=== PATIENT | female | born 2000 | race Caucasian/White ===

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

== ENCOUNTER 2023-04-20 22:43 | Emergency (ER) | payer OTHER ==
[2023-04-20 22:47] VITALS: BMI 28.5
[2023-04-20 23:35] LABS: HCG,QUALITATIVE URINE Positive
[2023-04-20 23:36] LABS: URINE APPEARANCE CLEAR; URINE BILIRUBIN NEGATIVE (NEGATIVE); URINE COLOR YELLOW; URINE GLUCOSE (UA) NEGATIVE (NEGATIVE); URINE KETONE NEGATIVE (NEGATIVE); URINE LEUK ESTERASE NEGATIVE (NEGATIVE); URINE NITRITE NEGATIVE (NEGATIVE); URINE PROTEIN NEGATIVE (NEGATIVE)
[2023-04-20] MEDS ORDERED: ACETAMINOPHEN 1000 MG/100 ML BAG IVPB ONE (23:43)
[2023-04-21] MEDS ORDERED: ACETAMINOPHEN INJECTION 100 ML IVPB ONE (00:18)
[2023-04-21 00:50] LABS: BASO % 0.2 % (0-2.0); EOS % 2.5 % (0-4.5); HEMATOCRIT 37.6 % (32.4-45.2); HEMOGLOBIN 12.5 GM/dL (10.7-15.3); LYMPH % 36.3 % (8-40); MCH 28.1 pg (25.7-33.7); MCHC 33.1 g/dl (32.0-36.0); MEAN CELL VOLUME 84.9 fl (80-96); MEAN PLT VOLUME 8.4 fl (7.5-11.1); MONO % 8.2 % (3.8-10.2); NEUT % 52.8 % (42.8-82.8); PLATELET COUNT 253 10^3/uL (134-434); RBC 4.43 M/mm3 (3.60-5.2); RDW 15.6 % (11.6-15.6); WHITE BLOOD COUNT 7.7 K/mm3 (4.0-10.0)
[2023-04-21 00:58] LABS: INR 1.17 (0.83-1.09); PROTHROMBIN TIME (PATIENT) 13.6 SEC (9.7-13.0)
[2023-04-21 01:01] LABS: ACTIVATED PTT 32.2 SECONDS (25.2-36.5)
[2023-04-21 01:14] LABS: POTASSIUM 3.4 mmol/L (3.5-5.1)
[2023-04-21 01:16] LABS: CALCIUM 8.8 mg/dL (8.5-10.1)
[2023-04-21 01:17] LABS: ALBUMIN 4.1 g/dl (3.4-5.0)
[2023-04-21 01:20] LABS: CREATININE 0.5 mg/dL (0.55-1.3)
[2023-04-21 01:22] LABS: BILIRUBIN,TOTAL 0.3 mg/dL (0.2-1); TOT PROT 7.2 g/dl (6.4-8.2)
[2023-04-21] MEDS ORDERED: POTASSIUM CHLORIDE ORAL LIQUID 20 MEQ/15 ML PO ONE (01:26)
[2023-04-21 01:34] VITALS: BP 106/64; PULSE 61; RESP 18; TEMP 98.1
[2023-04-21] MEDS ORDERED: POTASSIUM CHLORIDE ORAL LIQUID 20 MEQ/15 ML ONE (01:56)
== END 2023-04-21 02:22 | disposition home or self-care (01) ==
LOC: JER 22:43
PROC: 3E033NZ Introduction of Analgesics, Hypnotics, Sedatives into Peripheral Vein, Percutaneous Approach (ICD-10-PCS; principal; 2023-04-20)
DX: O26.891 Other specified pregnancy related conditions, first trimester (principal); R10.30 Lower abdominal pain, unspecified; R35.0 Frequency of micturition; N64.4 Mastodynia; O21.9 Vomiting of pregnancy, unspecified; Z3A.01 Less than 8 weeks gestation of pregnancy
CPT/HCPCS: 36415; 76817-TC; 80053; 81003; 84702; 84703; 85025; 85610; 85730; 86850; 86900; 86901; 87086; 87110; 87491; 87591; 87661; 99284-25

== ENCOUNTER 2023-04-22 20:15 | Emergency (ER) | payer OTHER ==
[2023-04-22 20:20] VITALS: BP 106/60; PULSE 64; RESP 16; TEMP 98.5; BMI 28.3
== END 2023-04-23 00:21 | disposition home or self-care (01) ==
LOC: JER 20:15
DX: Z32.01 Encounter for pregnancy test, result positive (principal); Z3A.01 Less than 8 weeks gestation of pregnancy
CPT/HCPCS: 36415; 76817-TC; 84702; 99284-25

== ENCOUNTER 2023-05-11 23:05 | Emergency (ER) | payer OTHER ==
[2023-05-11 23:16] VITALS: BP 108/64; PULSE 66; RESP 18; TEMP 98.4; BMI 28.3
[2023-05-12 01:21] LABS: HCG,QUALITATIVE URINE Positive
[2023-05-12 01:26] LABS: EPI CELLS 19 /uL (0-25.1); HYALINE CASTS 1 /uL (0-3.1); PH,URINE 6.5 (5.0-8.0); URINE APPEARANCE CLEAR; URINE BACTERIA 212 /uL (0-1359); URINE BILIRUBIN NEGATIVE (NEGATIVE); URINE COLOR YELLOW; URINE GLUCOSE (UA) NEGATIVE (NEGATIVE); URINE KETONE NEGATIVE (NEGATIVE); URINE LEUK ESTERASE NEGATIVE (NEGATIVE); URINE NITRITE NEGATIVE (NEGATIVE); URINE PROTEIN NEGATIVE (NEGATIVE); URINE RBC 4 /uL (0-23.9); URINE WBC 7 /uL (0-25.8)
[2023-05-12 01:59] LABS: BASO % 0.4 % (0-2.0); EOS % 2.1 % (0-4.5); HEMATOCRIT 37.8 % (32.4-45.2); HEMOGLOBIN 12.1 GM/dL (10.7-15.3); LYMPH % 32.2 % (8-40); MCHC 32.1 g/dl (32.0-36.0); MEAN CELL VOLUME 87.4 fl (80-96); MEAN PLT VOLUME 8.7 fl (7.5-11.1); MONO % 6.6 % (3.8-10.2); NEUT % 58.7 % (42.8-82.8); PLATELET COUNT 289 10^3/uL (134-434); RBC 4.32 M/mm3 (3.60-5.2); RDW 15.9 % (11.6-15.6); WHITE BLOOD COUNT 10.1 K/mm3 (4.0-10.0)
[2023-05-12 02:20] LABS: ALBUMIN 3.8 g/dl (3.4-5.0); BLOOD UREA NITROGEN 12.4 mg/dL (7-18); CALCIUM 8.9 mg/dL (8.5-10.1)
[2023-05-12 02:24] LABS: CREATININE 0.5 mg/dL (0.55-1.3)
[2023-05-12 02:25] LABS: BILIRUBIN,TOTAL 0.4 mg/dL (0.2-1); TOT PROT 6.9 g/dl (6.4-8.2)
== END 2023-05-12 03:03 | disposition home or self-care (01) ==
LOC: JER 23:05
DX: O20.9 Hemorrhage in early pregnancy, unspecified (principal); O26.891 Other specified pregnancy related conditions, first trimester; R10.30 Lower abdominal pain, unspecified; Z3A.08 8 weeks gestation of pregnancy
CPT/HCPCS: 36415; 76830-TC; 80053; 81003; 84702; 84703; 85025; 99284-25

== ENCOUNTER 2023-09-03 21:46 | Emergency (ER) | payer OTHER ==
[2023-09-03 21:51] VITALS: BP 101/49; PULSE 79; RESP 18; TEMP 98.2; BMI 27.2
[2023-09-03] MEDS ORDERED: ACETAMINOPHEN 500 MG TABLET (FP) PO ONE (22:26)
[2023-09-03] MEDS ORDERED: ACETAMINOPHEN 325 MG TABLET (FP) ONE (22:31)
== END 2023-09-03 22:32 | disposition home or self-care (01) ==
LOC: JER 21:46
DX: S06.0X0A Concussion without loss of consciousness, initial encounter (principal); R51.9 Headache, unspecified; H53.8 Other visual disturbances; R42 Dizziness and giddiness; W09.1XXA Fall from playground swing, initial encounter; W22.8XXA Striking against or struck by other objects, initial encounter; Y92.838 Other recreation area as the place of occurrence of the external cause
CPT/HCPCS: 99283-25

== ENCOUNTER 2023-12-09 20:02 | Emergency (ER) | payer OTHER ==
[2023-12-09 20:15] VITALS: BP 107/63; PULSE 57; RESP 18; TEMP 98.2; BMI 28.0
[2023-12-09] MEDS ORDERED: METOCLOPRAMIDE HCL INJECTION 10 MG/2 ML VIAL IVPB ONE (21:28)
[2023-12-09] MEDS ORDERED: ACETAMINOPHEN 1000 MG/100 ML BAG IVPB ONE (21:28)
[2023-12-09] MEDS ORDERED: SODIUM CHLORIDE 0.9% 500 ML INFUS.BAG IV ONE (21:28)
[2023-12-09] MEDS ORDERED: METOCLOPRAMIDE HCL INJECTION 10 MG/2 ML VIAL ONE (21:42)
[2023-12-09 21:46] LABS: BASO % 0.4 % (0-2.0); EOS % 1.1 % (0-4.5); HEMATOCRIT 38.2 % (32.4-45.2); HEMOGLOBIN 12.8 GM/dL (10.7-15.3); MCH 29.6 pg (25.7-33.7); MCHC 33.6 g/dl (32.0-36.0); MEAN CELL VOLUME 88.1 fl (80-96); MEAN PLT VOLUME 8.2 fl (7.5-11.1); MONO % 7.3 % (3.8-10.2); NEUT % 66.2 % (42.8-82.8); PLATELET COUNT 239 10^3/uL (134-434); RBC 4.34 M/mm3 (3.60-5.2); RDW 15.3 % (11.6-15.6); WHITE BLOOD COUNT 9.7 K/mm3 (4.0-10.0)
[2023-12-09 22:00] LABS: EPI CELLS >36 /uL (0-25.1); HYALINE CASTS 4 /uL (0-3.1); URINE APPEARANCE CLOUDY; URINE BACTERIA 775 /uL (0-1359); URINE BILIRUBIN NEGATIVE (NEGATIVE); URINE COLOR YELLOW; URINE GLUCOSE (UA) NEGATIVE (NEGATIVE); URINE KETONE 3+ (NEGATIVE); URINE LEUK ESTERASE TRACE (NEGATIVE); URINE NITRITE NEGATIVE (NEGATIVE); URINE PROTEIN NEGATIVE (NEGATIVE); URINE RBC 12 /uL (0-23.9); URINE WBC 72 /uL (0-25.8)
[2023-12-09] MEDS ORDERED: NITROFURANTOIN MONOHYD/M-CRYST 100 MG CAPSULE PO ONE (22:05)
[2023-12-09 22:10] LABS: POTASSIUM 4.1 mmol/L (3.5-5.1)
[2023-12-09 22:12] LABS: CALCIUM 9.4 mg/dL (8.5-10.1)
[2023-12-09 22:13] LABS: ALBUMIN 3.4 g/dl (3.4-5.0)
[2023-12-09 22:16] LABS: BLOOD UREA NITROGEN 11.8 mg/dL (7-18); CREATININE 0.5 mg/dL (0.55-1.3)
[2023-12-09 22:17] LABS: BILIRUBIN,TOTAL 0.4 mg/dL (0.2-1); TOT PROT 7.4 g/dl (6.4-8.2)
[2023-12-09] MEDS ORDERED: NITROFURANTOIN MACROCRYSTAL 50 MG CAPSULE (FP) ONE (22:25)
[2023-12-09] MEDS ORDERED: ACETAMINOPHEN INJECTION 100 ML IVPB ONE (23:12)
== END 2023-12-09 23:37 | disposition home or self-care (01) ==
LOC: JER 20:02
PROC: 3E033GC Introduction of Other Therapeutic Substance into Peripheral Vein, Percutaneous Approach (ICD-10-PCS; principal; 2023-12-09)
PROC: 3E033NZ Introduction of Analgesics, Hypnotics, Sedatives into Peripheral Vein, Percutaneous Approach (ICD-10-PCS; 2023-12-09)
DX: O26.892 Other specified pregnancy related conditions, second trimester (principal); R51.9 Headache, unspecified; O23.92 Unspecified genitourinary tract infection in pregnancy, second trimester; R82.71 Bacteriuria; Z3A.17 17 weeks gestation of pregnancy
CPT/HCPCS: 36415; 80053; 81003; 85025; 87086; 99284-25; J0131